=== PATIENT | female | born 1935 | race Caucasian/White ===

== ENCOUNTER 2019-11-26 12:04 | Observation (INO) ==
[2019-11-26 15:14] LABS: ABS Lymphocytes 0.6 10^3/ul (1.0-4.8); ABS Monocytes 0.4 10^3/ul (0-0.8); Hematocrit 34 % (35-47); Lymphocyte % 22.8 %; Mean Corpuscular HGB Conc 35 g/dL (31-36); Mean Corpuscular Hemoglobin 34 pg (27-31); Mean Corpuscular Volume 95 fL (80-97); Mean Platelet Volume 7.4 fL (7.4-10.4); Nucleated Red Blood Cells % 0.1; Platelet Count 190 10^3/uL (150-450); Red Blood Count 3.56 10^6 /uL (3.70-4.87); Red Cell Distribution Width 14 % (10-15); White Blood Count 2.8 10^3/uL (3.5-10.8)
[2019-11-26 15:19] LABS: Urine Appearance Cloudy; Urine Bilirubin Negative (Negative); Urine Blood Negative (Negative); Urine Color Yellow; Urine Glucose Negative (Negative); Urine Ketones Negative (Negative); Urine Nitrite Negative (Negative); Urine Protein Negative (Negative); Urine Specific Gravity 1.019 (1.010-1.030); Urine Urobilinogen Negative (Negative)
[2019-11-26 15:47] LABS: Albumin 3.8 g/dL (3.2-5.2); Albumin/Globulin Ratio 1.2 (1-3); BUN/Creatinine Ratio 28.6 (8-20); Calcium 8.8 mg/dL (8.6-10.3); EGFR African American 55.8 (>60); EGFR Non-African American 46.1 (>60); Globulin 3.2 g/dL (2-4); Potassium 3.3 mmol/L (3.5-5.0); Total Bilirubin 0.6 mg/dL (0.2-1.0)
[2019-11-26] MEDS ORDERED: Iodixanol (CONTRAST) 320 MG/ML 100 ML SDV IV ONE (16:09)
[2019-11-26] MEDS ORDERED: NS 0.9% 1000 ml BAG 1,000 ML IV ONE (17:00)
[2019-11-26] MEDS ORDERED: hydrALAZINE 20 mg/ml 1 ML Vial IV IV SLOW PU PRN (18:27)
[2019-11-26] MEDS: NS 0.9% w/ 40 Meq KCL 1000 ML 1,000 ML IV SCH (22:02)
[2019-11-27 06:49] LABS: INR 1.04 (0.82-1.09)
[2019-11-27 06:55] LABS: ABS Lymphocytes 0.5 10^3/ul (1.0-4.8); ABS Monocytes 0.3 10^3/ul (0-0.8); Hematocrit 29 % (35-47); Hemoglobin 10.3 g/dL (12.0-16.0); Mean Corpuscular HGB Conc 35 g/dL (31-36); Mean Corpuscular Hemoglobin 33 pg (27-31); Mean Corpuscular Volume 94 fL (80-97); Mean Platelet Volume 7.5 fL (7.4-10.4); Platelet Count 163 10^3/uL (150-450); Red Blood Count 3.09 10^6 /uL (3.70-4.87); Red Cell Distribution Width 13 % (10-15); White Blood Count 2.5 10^3/uL (3.5-10.8)
[2019-11-27 07:03] LABS: BUN/Creatinine Ratio 22.9 (8-20); Calcium 8.4 mg/dL (8.6-10.3); EGFR African American 78.9 (>60); EGFR Non-African American 65.2 (>60); Potassium 3.4 mmol/L (3.5-5.0)
[2019-11-27] MEDS: NS 0.9% w/ 40 Meq KCL 1000 ML 1,000 ML IV SCH (09:38)
[2019-11-27 12:36] VITALS: BP 146/57
== END 2019-11-27 16:05 | disposition home or self-care (01) ==
LOC: ED 12:04 → MED 19:13 → INTOOBSV 19:13 → MED 21:48
PROVIDERS: ADMIT Nurse Practitioner; ATTEND Internal Medicine

== ENCOUNTER 2021-08-27 11:44 | Inpatient (IN) ==
[2021-08-27 12:35] LABS: ABS Lymphocytes 0.5 10^3/ul (1.0-4.8); ABS Monocytes 0.3 10^3/ul (0-0.8); ABS Neutrophils 3.8 10^3/ul (1.5-7.7); Eosinophil % 1.1 %; Hematocrit 33 % (35-47); Hemoglobin 10.8 g/dL (12.0-16.0); Lymphocyte % 10.6 %; Mean Corpuscular HGB Conc 33 g/dL (31-36); Mean Corpuscular Hemoglobin 31 pg (27-31); Mean Corpuscular Volume 92 fL (80-97); Mean Platelet Volume 7.2 fL (7.4-10.4); Platelet Count 389 10^3/uL (150-450); Red Blood Count 3.53 10^6 /uL (3.70-4.87); Red Cell Distribution Width 15 % (10-15); White Blood Count 4.6 10^3/uL (3.5-10.8)
[2021-08-27 12:41] LABS: INR 1.19 (0.86-1.15)
[2021-08-27 13:10] LABS: ALT 9 U/L (7-52); AST 11 U/L (13-39); Albumin 3.8 g/dL (3.2-5.2); Alkaline Phosphatase 80 U/L (35-149); Anion Gap 11 mmol/L (2-11); Blood Urea Nitrogen 46 mg/dL (6-24); C Reactive Protein 116.08 mg/L (<8.01); CO2 Carbon Dioxide 25 mmol/L (22-32); Calcium 8.8 mg/dL (8.6-10.3); Chloride 104 mmol/L (101-111); Globulin 3.9 g/dL (2-4); Glucose 108 mg/dL (70-100); Lipase < 10 U/L (11.0-82.0); Potassium 3.5 mmol/L (3.5-5.0); Sodium 140 mmol/L (135-145); Total Protein 7.7 g/dL (6.4-8.9); eGFR CKD-EPI 43.4 (>60)
[2021-08-27 13:48] LABS: Urine Appearance Cloudy; Urine Bilirubin Negative (Negative); Urine Blood Negative (Negative); Urine Color Yellow; Urine Glucose Negative (Negative); Urine Ketones Negative (Negative); Urine Nitrite Negative (Negative); Urine Protein Negative (Negative); Urine Specific Gravity 1.019 (1.002-1.030); Urine Urobilinogen Negative (Negative)
[2021-08-27] MEDS ORDERED: Acetaminophen IV 1 GM/100ML 100 ML IV ONE (15:30)
[2021-08-27] MEDS: Enoxaparin 30 MG/0.3 ML SYR SUBCUT SCH (17:34)
[2021-08-27] MEDS: NS 0.9% 1000 ml BAG 1,000 ML IV SCH (17:34)
[2021-08-27] MEDS: hydrALAZINE 20 mg/ml 1 ML Vial IV IV SLOW PU PRN (18:01)
[2021-08-27] MEDS: Morphine 4 MG/ML VIAL (1 ml) IV PRN ×2 (20:37→23:44)
[2021-08-27] MEDS: Ondansetron 4 mg VIAL 2 MG/ML 2 ml VIAL IV PRN (22:11)
[2021-08-28] MEDS ORDERED: Acetaminophen IV 1 GM/100ML 100 ML IV ONE (00:07)
[2021-08-28] MEDS: Morphine 4 MG/ML VIAL (1 ml) IV PRN ×2 (01:43→07:38)
[2021-08-28] MEDS: Ondansetron 4 mg VIAL 2 MG/ML 2 ml VIAL IV PRN (07:38)
[2021-08-28] MEDS: NS 0.9% 1000 ml BAG 1,000 ML IV SCH (16:21)
[2021-08-28] MEDS: Enoxaparin 30 MG/0.3 ML SYR SUBCUT SCH (16:35)
[2021-08-28] MEDS: hydrALAZINE 20 mg/ml 1 ML Vial IV IV SLOW PU PRN (20:39)
[2021-08-29] MEDS: NS 0.9% 1000 ml BAG 1,000 ML IV SCH (10:44)
[2021-08-29 11:18] LABS: Hematocrit 31 % (35-47); Hemoglobin 10.5 g/dL (12.0-16.0); Mean Corpuscular HGB Conc 34 g/dL (31-36); Mean Corpuscular Hemoglobin 31 pg (27-31); Mean Corpuscular Volume 91 fL (80-97); Mean Platelet Volume 7.4 fL (7.4-10.4); Platelet Count 384 10^3/uL (150-450); Red Cell Distribution Width 15 % (10-15); White Blood Count 4.1 10^3/uL (3.5-10.8)
[2021-08-29 11:55] LABS: Calcium 8.6 mg/dL (8.6-10.3); Potassium 3.6 mmol/L (3.5-5.0); eGFR CKD-EPI 60.3 (>60)
[2021-08-29] MEDS: Enoxaparin 30 MG/0.3 ML SYR SUBCUT SCH (16:22)
[2021-08-30 11:59] VITALS: BP 168/68
== END 2021-08-30 13:40 | disposition home or self-care (01) | DRG 390 ==
LOC: ED 11:44 → EDHOLD 16:49 → MED 21:30
PROVIDERS: ADMIT Hospitalist; ATTEND Hospitalist

== ENCOUNTER 2021-09-05 15:16 | Observation (INO) ==
[2021-09-05] MEDS ORDERED: NS 0.9% 1000 ml BAG 1,000 ML IV ONE (16:58)
[2021-09-05 17:37] LABS: Hematocrit 30 % (35-47); Mean Corpuscular HGB Conc 33 g/dL (31-36); Mean Corpuscular Hemoglobin 31 pg (27-31); Mean Corpuscular Volume 92 fL (80-97); Red Blood Count 3.26 10^6 /uL (3.70-4.87); Red Cell Distribution Width 16 % (10-15); White Blood Count 4.3 10^3/uL (3.5-10.8)
[2021-09-05 17:49] LABS: ABS Lymphocytes 0.6 10^3/ul (1.0-4.8); ABS Monocytes 0.4 10^3/ul (0-0.8); ABS Neutrophils 3.3 10^3/ul (1.5-7.7); Eosinophil % 0.4 %; Lymphocyte % 13.8 %; Mean Platelet Volume 8.4 fL (7.4-10.4); Nucleated Red Blood Cells % 0.5; Platelet Count 312 10^3/uL (150-450)
[2021-09-05 18:09] LABS: ALT 7 U/L (7-52); Albumin 3.5 g/dL (3.2-5.2); Alkaline Phosphatase 76 U/L (35-149); Blood Urea Nitrogen 23 mg/dL (6-24); CO2 Carbon Dioxide 27 mmol/L (22-32); Calcium 8.6 mg/dL (8.6-10.3); Chloride 103 mmol/L (101-111); Globulin 3.5 g/dL (2-4); Glucose 114 mg/dL (70-100); Lipase < 10 U/L (11.0-82.0); Magnesium 1.6 mg/dL (1.9-2.7); Sodium 140 mmol/L (135-145); eGFR CKD-EPI 74.6 (>60)
[2021-09-05 18:16] LABS: Anion Gap 10 mmol/L (2-11)
[2021-09-05 19:53] LABS: Potassium, Whole Blood 3.1 mmol/L (3.4-4.5)
[2021-09-05] MEDS ORDERED: Magnesium Sulfate 2 gm BAG 2 GM/50 ML BAG IVPB ONE (20:32)
[2021-09-05] MEDS ORDERED: Enoxaparin 30 MG/0.3 ML SYR SUBCUT SCH (21:00)
[2021-09-05] MEDS ORDERED: DIPHENHYDRAMINE 2% TOPICAL PRN (21:22)
[2021-09-05] MEDS: KCL 20 MEQ/100 ML IVPREMIX 20 MEQ/100 ML BAG IV SCH (21:33)
[2021-09-06] MEDS: KCL 20 MEQ/100 ML IVPREMIX 20 MEQ/100 ML BAG IV SCH (02:39)
[2021-09-06] MEDS: Morphine 2 MG/ML SYRINGE IV PRN ×3 (03:43→15:50)
[2021-09-06] MEDS: hydrALAZINE 20 mg/ml 1 ML Vial IV IV SLOW PU PRN ×2 (04:19→16:52)
[2021-09-06] MEDS ORDERED: Acetaminophen IV 1 GM/100ML 100 ML IV PRN (05:01)
[2021-09-06 06:00] LABS: ABS Lymphocytes 0.6 10^3/ul (1.0-4.8); ABS Monocytes 0.4 10^3/ul (0-0.8); ABS Neutrophils 3.5 10^3/ul (1.5-7.7); Eosinophil % 0.4 %; Hematocrit 29 % (35-47); Hemoglobin 9.5 g/dL (12.0-16.0); Mean Corpuscular HGB Conc 33 g/dL (31-36); Mean Corpuscular Hemoglobin 30 pg (27-31); Mean Corpuscular Volume 91 fL (80-97); Mean Platelet Volume 7.5 fL (7.4-10.4); Nucleated Red Blood Cells % 0.1; Platelet Count 360 10^3/uL (150-450); Red Blood Count 3.15 10^6 /uL (3.70-4.87); Red Cell Distribution Width 16 % (10-15); White Blood Count 4.5 10^3/uL (3.5-10.8)
[2021-09-06 06:05] LABS: INR 1.08 (0.86-1.15)
[2021-09-06] MEDS: Enoxaparin 30 MG/0.3 ML SYR SUBCUT SCH (06:07)
[2021-09-06 06:17] LABS: Albumin 3.2 g/dL (3.2-5.2); Calcium 8.2 mg/dL (8.6-10.3); Globulin 3.1 g/dL (2-4); Potassium 3.4 mmol/L (3.5-5.0); Total Bilirubin 0.4 mg/dL (0.2-1.0); Total Protein 6.3 g/dL (6.4-8.9); eGFR CKD-EPI 86.1 (>60)
[2021-09-06] MEDS ORDERED: KCL 20 MEQ/100 ML IVPREMIX 20 MEQ/100 ML BAG IV ONE (06:18)
[2021-09-06] MEDS: Ondansetron 4 mg VIAL 2 MG/ML 2 ml VIAL IV PRN ×2 (06:40→23:31)
[2021-09-06] MEDS ORDERED: Diatrizoate Meg/Sod(CONTRAST) 30 ML ORAL.SOLN PO ONE (15:34)
[2021-09-06] MEDS: Lactated Ringers 1000 ml BAG 1,000 ML IV SCH (15:44)
[2021-09-06] MEDS: Acetaminophen IV 1 GM/100ML 100 ML IV SCH (18:02)
[2021-09-07] MEDS: Acetaminophen IV 1 GM/100ML 100 ML IV SCH ×4 (01:13→18:11)
[2021-09-07] MEDS: Lactated Ringers 1000 ml BAG 1,000 ML IV SCH ×2 (05:58→18:13)
[2021-09-07] MEDS: Enoxaparin 30 MG/0.3 ML SYR SUBCUT SCH (05:59)
[2021-09-07 06:15] LABS: ABS Lymphocytes 0.5 10^3/ul (1.0-4.8); ABS Monocytes 0.4 10^3/ul (0-0.8); ABS Neutrophils 3.2 10^3/ul (1.5-7.7); Eosinophil % 0.3 %; Hematocrit 28 % (35-47); Hemoglobin 9.6 g/dL (12.0-16.0); Lymphocyte % 12.2 %; Mean Corpuscular HGB Conc 34 g/dL (31-36); Mean Corpuscular Hemoglobin 31 pg (27-31); Mean Corpuscular Volume 92 fL (80-97); Mean Platelet Volume 7.3 fL (7.4-10.4); Nucleated Red Blood Cells % 0.1; Platelet Count 340 10^3/uL (150-450); Red Blood Count 3.09 10^6 /uL (3.70-4.87); Red Cell Distribution Width 16 % (10-15); White Blood Count 4.1 10^3/uL (3.5-10.8)
[2021-09-07 06:41] LABS: Calcium 8.3 mg/dL (8.6-10.3); Magnesium 1.9 mg/dL (1.9-2.7); Potassium 3.5 mmol/L (3.5-5.0); eGFR CKD-EPI 85.2 (>60)
[2021-09-08 00:10] LABS: Urine Appearance Clear; Urine Bilirubin Negative (Negative); Urine Blood Negative (Negative); Urine Color Yellow; Urine Glucose Negative (Negative); Urine Ketones Negative (Negative); Urine Nitrite Negative (Negative); Urine Protein Negative (Negative); Urine Specific Gravity 1.017 (1.002-1.030); Urine Urobilinogen Negative (Negative)
[2021-09-08] MEDS: Acetaminophen IV 1 GM/100ML 100 ML IV SCH ×2 (00:41→06:05)
[2021-09-08] MEDS: Morphine 2 MG/ML SYRINGE IV PRN (01:22)
[2021-09-08 05:59] LABS: ABS Lymphocytes 0.7 10^3/ul (1.0-4.8); ABS Monocytes 0.4 10^3/ul (0-0.8); ABS Neutrophils 2.7 10^3/ul (1.5-7.7); Eosinophil % 0.9 %; Hematocrit 27 % (35-47); Lymphocyte % 17.8 %; Mean Corpuscular HGB Conc 33 g/dL (31-36); Mean Corpuscular Hemoglobin 30 pg (27-31); Mean Corpuscular Volume 91 fL (80-97); Mean Platelet Volume 7.4 fL (7.4-10.4); Platelet Count 307 10^3/uL (150-450); Red Blood Count 2.95 10^6 /uL (3.70-4.87); Red Cell Distribution Width 17 % (10-15); White Blood Count 3.9 10^3/uL (3.5-10.8)
[2021-09-08] MEDS: Enoxaparin 30 MG/0.3 ML SYR SUBCUT SCH (06:06)
[2021-09-08 06:21] LABS: Calcium 8.2 mg/dL (8.6-10.3); Potassium 2.9 mmol/L (3.5-5.0)
[2021-09-08 06:27] LABS: eGFR CKD-EPI 83.9 (>60)
[2021-09-08] MEDS: KCL 20 MEQ/100 ML IVPREMIX 20 MEQ/100 ML BAG IV SCH ×3 (09:22→14:42)
[2021-09-08] MEDS ORDERED: Potassium Chlor 10 meq TAB PO ONE (14:12)
[2021-09-09] MEDS: Enoxaparin 30 MG/0.3 ML SYR SUBCUT SCH (06:17)
[2021-09-09 08:35] LABS: ABS Lymphocytes 0.6 10^3/ul (1.0-4.8); ABS Monocytes 0.4 10^3/ul (0-0.8); ABS Neutrophils 3.5 10^3/ul (1.5-7.7); Eosinophil % 0.9 %; Hematocrit 28 % (35-47); Hemoglobin 9.5 g/dL (12.0-16.0); Lymphocyte % 13.3 %; Mean Corpuscular HGB Conc 33 g/dL (31-36); Mean Corpuscular Hemoglobin 31 pg (27-31); Mean Corpuscular Volume 92 fL (80-97); Mean Platelet Volume 7.1 fL (7.4-10.4); Platelet Count 329 10^3/uL (150-450); Red Cell Distribution Width 16 % (10-15); White Blood Count 4.6 10^3/uL (3.5-10.8)
[2021-09-09 09:16] LABS: Calcium 8.3 mg/dL (8.6-10.3); eGFR CKD-EPI 83.9 (>60)
[2021-09-09] MEDS ORDERED: Potassium Chlor 20 meq TAB.ER PO ONE ×3 (09:54→18:00)
[2021-09-10] MEDS: Enoxaparin 30 MG/0.3 ML SYR SUBCUT SCH (05:25)
[2021-09-10 05:33] LABS: Hematocrit 28 % (35-47); Hemoglobin 9.3 g/dL (12.0-16.0); Mean Corpuscular HGB Conc 33 g/dL (31-36); Mean Corpuscular Hemoglobin 31 pg (27-31); Mean Corpuscular Volume 93 fL (80-97); Mean Platelet Volume 7.5 fL (7.4-10.4); Platelet Count 318 10^3/uL (150-450); Red Blood Count 3.02 10^6 /uL (3.70-4.87); Red Cell Distribution Width 17 % (10-15); White Blood Count 4.2 10^3/uL (3.5-10.8)
[2021-09-10 05:49] LABS: Calcium 8.3 mg/dL (8.6-10.3); Magnesium 1.6 mg/dL (1.9-2.7); Potassium 3.6 mmol/L (3.5-5.0); eGFR CKD-EPI 80.9 (>60)
[2021-09-10] MEDS ORDERED: Magnesium Sulfate 2 gm BAG 2 GM/50 ML BAG IVPB ONE (06:55)
[2021-09-10 11:36] VITALS: BP 186/72
== END 2021-09-10 12:20 | disposition home or self-care (01) ==
LOC: ED 15:16 → EDHOLD 15:16 → SUATTDRO 20:17 → SSU 09-06 00:20
PROVIDERS: ADMIT Internal Medicine; ATTEND Internal Medicine

== ENCOUNTER 2021-09-13 14:27 | Observation (INO) ==
[2021-09-13 16:12] LABS: ABS Lymphocytes 0.4 10^3/ul (1.0-4.8); ABS Monocytes 0.4 10^3/ul (0-0.8); Eosinophil % 0.3 %; Hematocrit 30 % (35-47); Hemoglobin 10.2 g/dL (12.0-16.0); Lymphocyte % 8.9 %; Mean Corpuscular HGB Conc 34 g/dL (31-36); Mean Corpuscular Hemoglobin 31 pg (27-31); Mean Corpuscular Volume 92 fL (80-97); Mean Platelet Volume 7.1 fL (7.4-10.4); Platelet Count 300 10^3/uL (150-450); Red Blood Count 3.29 10^6 /uL (3.70-4.87); Red Cell Distribution Width 18 % (10-15); White Blood Count 4.9 10^3/uL (3.5-10.8)
[2021-09-13] MEDS ORDERED: Ondansetron 4 mg VIAL 2 MG/ML 2 ml VIAL IV PRN (16:40)
[2021-09-13] MEDS ORDERED: Lactated Ringers 1000 ml BAG 1,000 ML IV ONE (16:42)
[2021-09-13 16:54] LABS: Albumin 3.5 g/dL (3.2-5.2); Calcium 8.7 mg/dL (8.6-10.3); Globulin 3.6 g/dL (2-4); Potassium 3.2 mmol/L (3.5-5.0); Total Bilirubin 0.5 mg/dL (0.2-1.0); Total Protein 7.1 g/dL (6.4-8.9); eGFR CKD-EPI 82.2 (>60)
[2021-09-13] MEDS: Acetaminophen IV 1 GM/100ML 100 ML IV PRN (17:31)
[2021-09-13] MEDS ORDERED: Enoxaparin 40 MG/0.4 ML SYR SUBCUT SCH (18:00)
[2021-09-13] MEDS: Lactated Ringers 1000 ml BAG 1,000 ML IV SCH (22:39)
[2021-09-13] MEDS: KCL 20 MEQ/100 ML IVPREMIX 20 MEQ/100 ML BAG IV SCH (22:39)
[2021-09-14] MEDS: Acetaminophen IV 1 GM/100ML 100 ML IV PRN ×2 (00:26→21:55)
[2021-09-14] MEDS ORDERED: Morphine 2 MG/ML SYRINGE IV ONE (02:53)
[2021-09-14] MEDS ORDERED: KCL 20 MEQ/100 ML IVPREMIX 20 MEQ/100 ML BAG IV SCH (04:00)
[2021-09-14] MEDS: KCL 20 MEQ/100 ML IVPREMIX 20 MEQ/100 ML BAG IV SCH (04:49)
[2021-09-14 05:59] LABS: ABS Lymphocytes 0.5 10^3/ul (1.0-4.8); ABS Monocytes 0.4 10^3/ul (0-0.8); ABS Neutrophils 2.7 10^3/ul (1.5-7.7); Hematocrit 25 % (35-47); Hemoglobin 8.2 g/dL (12.0-16.0); Lymphocyte % 13.8 %; Mean Corpuscular HGB Conc 33 g/dL (31-36); Mean Corpuscular Hemoglobin 31 pg (27-31); Mean Corpuscular Volume 93 fL (80-97); Mean Platelet Volume 7.4 fL (7.4-10.4); Nucleated Red Blood Cells % 0.1; Platelet Count 257 10^3/uL (150-450); Red Cell Distribution Width 17 % (10-15); White Blood Count 3.5 10^3/uL (3.5-10.8)
[2021-09-14 06:27] LABS: Calcium 7.8 mg/dL (8.6-10.3); Magnesium 1.6 mg/dL (1.9-2.7); Potassium 3.3 mmol/L (3.5-5.0); eGFR CKD-EPI 83.9 (>60)
[2021-09-14] MEDS ORDERED: Magnesium Sulfate 2 gm BAG 2 GM/50 ML BAG IVPB ONE (08:22)
[2021-09-14] MEDS ORDERED: Enalaprilat IV 1.25 mg/ml 1 ml VIAL (1.25 MG) IV ONE (08:23)
[2021-09-14] MEDS: KCL 10 MEQ/50 ML IVPREMIX 10 MEQ/50 ML BAG IV SCH ×2 (09:47→11:16)
[2021-09-14] MEDS: Lactated Ringers 1000 ml BAG 1,000 ML IV SCH ×2 (09:52→21:57)
[2021-09-15 06:16] LABS: Calcium 7.7 mg/dL (8.6-10.3); Magnesium 1.8 mg/dL (1.9-2.7); eGFR CKD-EPI 87.2 (>60)
[2021-09-15] MEDS ORDERED: Magnesium Sulfate 2 gm BAG 2 GM/50 ML BAG IVPB ONE (08:15)
[2021-09-15] MEDS ORDERED: Potassium Chlor 20 meq TAB.ER PO ONE ×2 (08:16→12:00)
[2021-09-15] MEDS ORDERED: KCL 20 MEQ/100 ML IVPREMIX 20 MEQ/100 ML BAG IV ONE (08:17)
[2021-09-15] MEDS: Lactated Ringers 1000 ml BAG 1,000 ML IV SCH (09:39)
[2021-09-15] MEDS ORDERED: Gadoteridol (CONTRAST) 279.3 MG/ML 10 ML IV ONE (15:29)
[2021-09-15] MEDS: Acetaminophen IV 1 GM/100ML 100 ML IV PRN (16:08)
[2021-09-15] MEDS ORDERED: Enalaprilat IV 1.25 mg/ml 1 ml VIAL (1.25 MG) IV ONE (16:30)
[2021-09-15] MEDS: Enoxaparin 40 MG/0.4 ML SYR SUBCUT SCH (16:54)
[2021-09-15 17:28] LABS: Calcium 7.9 mg/dL (8.6-10.3); Magnesium 2.3 mg/dL (1.9-2.7); Potassium 3.8 mmol/L (3.5-5.0); eGFR CKD-EPI 86.8 (>60)
[2021-09-15] MEDS ORDERED: CALCIUM GLUCONATE 1GM/50ML NS 1 GM/50 ML BAG IV ONE (20:17)
[2021-09-16] MEDS: Acetaminophen IV 1 GM/100ML 100 ML IV PRN (01:40)
[2021-09-16] MEDS: Lactated Ringers 1000 ml BAG 1,000 ML IV SCH (04:25)
[2021-09-16 05:12] LABS: ABS Lymphocytes 0.5 10^3/ul (1.0-4.8); ABS Monocytes 0.4 10^3/ul (0-0.8); ABS Neutrophils 1.6 10^3/ul (1.5-7.7); Eosinophil % 1.5 %; Hematocrit 24 % (35-47); Hemoglobin 8.1 g/dL (12.0-16.0); Lymphocyte % 19.8 %; Mean Corpuscular HGB Conc 34 g/dL (31-36); Mean Corpuscular Hemoglobin 31 pg (27-31); Mean Corpuscular Volume 92 fL (80-97); Mean Platelet Volume 7.2 fL (7.4-10.4); Platelet Count 238 10^3/uL (150-450); Red Blood Count 2.62 10^6 /uL (3.70-4.87); Red Cell Distribution Width 17 % (10-15); White Blood Count 2.5 10^3/uL (3.5-10.8)
[2021-09-16 05:30] LABS: Calcium 7.8 mg/dL (8.6-10.3); Potassium 3.4 mmol/L (3.5-5.0); eGFR CKD-EPI 84.8 (>60)
[2021-09-16] MEDS: D5W 1/2 NS KCl 20 meq 1000 ml 1,000 ML IV SCH (06:24)
[2021-09-16] MEDS ORDERED: Potassium Chlor 20 meq TAB.ER PO ONE ×2 (08:50→12:00)
[2021-09-16] MEDS: Calcium/Vitamin D TAB 250/125 TAB PO SCH ×2 (09:34→20:28)
[2021-09-16] MEDS ORDERED: Vancomycin 1,000 MG in NS 0.9% 250 ml 250 ML IVPB ONE ×2 (11:10→12:30)
[2021-09-16] MEDS: Cefepime 2 GM in Dextrose 2 GM/50 ML BAG IV SCH (11:57)
[2021-09-16] MEDS ORDERED: Vancomycin per Pharmacy 1 EA NOTE FOLLOW UP SCH (12:00)
[2021-09-16 15:03] LABS: Calcium 7.8 mg/dL (8.6-10.3); Magnesium 1.9 mg/dL (1.9-2.7); Potassium 3.5 mmol/L (3.5-5.0); eGFR CKD-EPI 85.5 (>60)
[2021-09-16] MEDS: Enoxaparin 40 MG/0.4 ML SYR SUBCUT SCH (17:25)
[2021-09-16 19:19] LABS: Vitamin D Total 25(OH) 10.3 ng/mL (20-50)
[2021-09-16] MEDS ORDERED: CALCIUM GLUCONATE 1GM/50ML NS 1 GM/50 ML BAG IV ONE (20:00)
[2021-09-17] MEDS: Cefepime 2 GM in Dextrose 2 GM/50 ML BAG IV SCH ×2 (00:16→14:35)
[2021-09-17] MEDS ORDERED: Vancomycin 750 MG in NS 0.9% 250 ML IVPB SCH (01:30)
[2021-09-17] MEDS: D5W 1/2 NS KCl 20 meq 1000 ml 1,000 ML IV SCH (04:18)
[2021-09-17 04:46] LABS: ABS Lymphocytes 0.6 10^3/ul (1.0-4.8); ABS Monocytes 0.4 10^3/ul (0-0.8); ABS Neutrophils 2.3 10^3/ul (1.5-7.7); Eosinophil % 1.1 %; Hematocrit 27 % (35-47); Hemoglobin 8.8 g/dL (12.0-16.0); Lymphocyte % 17.5 %; Mean Corpuscular HGB Conc 33 g/dL (31-36); Mean Corpuscular Hemoglobin 31 pg (27-31); Mean Corpuscular Volume 92 fL (80-97); Mean Platelet Volume 7.3 fL (7.4-10.4); Nucleated Red Blood Cells % 0.1; Platelet Count 279 10^3/uL (150-450); Red Blood Count 2.89 10^6 /uL (3.70-4.87); Red Cell Distribution Width 18 % (10-15); White Blood Count 3.4 10^3/uL (3.5-10.8)
[2021-09-17 05:21] LABS: Calcium 7.8 mg/dL (8.6-10.3); Magnesium 1.8 mg/dL (1.9-2.7); Potassium 3.5 mmol/L (3.5-5.0); eGFR CKD-EPI 68.2 (>60)
[2021-09-17] MEDS: Acetaminophen IV 1 GM/100ML 100 ML IV PRN (07:49)
[2021-09-17] MEDS ORDERED: CALCIUM GLUCONATE 1GM/50ML NS 1 GM/50 ML BAG IV ONE (08:00)
[2021-09-17] MEDS: Calcium/Vitamin D TAB 250/125 TAB PO SCH ×2 (08:01→22:51)
[2021-09-17] MEDS ORDERED: Potassium Chlor 20 meq TAB.ER PO SCH (09:00)
[2021-09-17] MEDS: Potassium Chlor 20 meq TAB.ER PO SCH ×2 (09:49→22:51)
[2021-09-17 12:22] LABS: C Reactive Protein 13.61 mg/L (<8.01)
[2021-09-17] MEDS: Cholestyramine Resin 4 GM POWDER PO SCH (15:06)
[2021-09-17] MEDS: Enoxaparin 40 MG/0.4 ML SYR SUBCUT SCH (17:26)
[2021-09-18] MEDS: Acetaminophen IV 1 GM/100ML 100 ML IV PRN (04:21)
[2021-09-18 05:42] LABS: ABS Lymphocytes 0.6 10^3/ul (1.0-4.8); ABS Monocytes 0.5 10^3/ul (0-0.8); ABS Neutrophils 2.3 10^3/ul (1.5-7.7); Eosinophil % 0.7 %; Hematocrit 26 % (35-47); Hemoglobin 8.6 g/dL (12.0-16.0); Lymphocyte % 18.4 %; Mean Corpuscular HGB Conc 34 g/dL (31-36); Mean Corpuscular Hemoglobin 31 pg (27-31); Mean Corpuscular Volume 92 fL (80-97); Mean Platelet Volume 7.4 fL (7.4-10.4); Nucleated Red Blood Cells % 0.1; Platelet Count 269 10^3/uL (150-450); Red Blood Count 2.79 10^6 /uL (3.70-4.87); Red Cell Distribution Width 18 % (10-15); White Blood Count 3.4 10^3/uL (3.5-10.8)
[2021-09-18 06:01] LABS: Calcium 7.9 mg/dL (8.6-10.3); Magnesium 1.7 mg/dL (1.9-2.7); Potassium 3.8 mmol/L (3.5-5.0); eGFR CKD-EPI 71.3 (>60)
[2021-09-18] MEDS ORDERED: Magnesium Sulfate IV 1GM/100ML 1 GM/100 ML BAG IV ONE (08:00)
[2021-09-18] MEDS: Calcium/Vitamin D TAB 250/125 TAB PO SCH (09:30)
[2021-09-18] MEDS: Potassium Chlor 20 meq TAB.ER PO SCH (09:30)
[2021-09-18] MEDS: Cholestyramine Resin 4 GM POWDER PO SCH (09:30)
[2021-09-18 11:24] VITALS: BP 142/74
[2021-09-18] MEDS ORDERED: Vancomycin Trough Check NOTE FOLLOW UP ONE (13:00)
[2021-09-18 15:36] LABS: Calprotectin <50.0 mcg/g
[2021-09-20 17:38] LABS: Pancreatic Elastase Feces >500 mcg/g
== END 2021-09-18 13:30 | disposition home or self-care (01) ==
LOC: ED 14:27 → EDHOLD 14:27 → SUATTDRO 16:40 → SSU 21:25
PROVIDERS: ADMIT Internal Medicine; ATTEND Hospitalist

== ENCOUNTER 2022-02-23 10:47 | Inpatient (IN) ==
[2022-02-23] MEDS ORDERED: NS 0.9% 1000 ml BAG 1,000 ML IV ONE ×2 (11:07→12:15)
[2022-02-23] MEDS ORDERED: Ondansetron 4 mg VIAL 2 MG/ML 2 ml VIAL IV ONE (11:19)
[2022-02-23 11:35] LABS: ABS Lymphocytes 0.4 10^3/ul (1.0-4.8); ABS Monocytes 0.8 10^3/ul (0-0.8); ABS Neutrophils 8.3 10^3/ul (1.5-7.7); Hematocrit 34 % (35-47); Hemoglobin 10.9 g/dL (12.0-16.0); Lymphocyte % 3.9 %; Mean Corpuscular HGB Conc 32 g/dL (31-36); Mean Corpuscular Hemoglobin 28 pg (27-31); Mean Corpuscular Volume 87 fL (80-97); Mean Platelet Volume 7.4 fL (7.4-10.4); Platelet Count 317 10^3/uL (150-450); Red Cell Distribution Width 17 % (10-15); White Blood Count 9.5 10^3/uL (3.5-10.8)
[2022-02-23 11:56] LABS: High Sens Troponin Baseline 26 pg/mL (<15)
[2022-02-23 12:28] LABS: ALT 11 U/L (7-52); AST 12 U/L (13-39); Albumin 3.5 g/dL (3.2-5.2); Alkaline Phosphatase 87 U/L (35-149); Anion Gap 16 mmol/L (2-11); Blood Urea Nitrogen 88 mg/dL (6-24); CO2 Carbon Dioxide 18 mmol/L (22-32); Calcium 8.3 mg/dL (8.6-10.3); Chloride 107 mmol/L (101-111); Globulin 3.6 g/dL (2-4); Glucose 145 mg/dL (70-100); Lipase < 10 U/L (11.0-82.0); Magnesium 2.1 mg/dL (1.9-2.7); Potassium 3.4 mmol/L (3.5-5.0); Sodium 141 mmol/L (135-145); Total Protein 7.1 g/dL (6.4-8.9); eGFR CKD-EPI 12.3 (>60)
[2022-02-23 12:35] LABS: TSH Ultra Thyroid Stim Horm 2.51 mcIU/mL (0.34-5.60)
[2022-02-23 13:10] LABS: High Sensitivity Troponin 1 Hr 27 pg/mL (<15); Urine Appearance Cloudy; Urine Bilirubin 1+ (Small) (Negative); Urine Blood Negative (Negative); Urine Color Yellow; Urine Glucose Negative (Negative); Urine Ketones Trace (Negative); Urine Specific Gravity 1.015 (1.005-1.030)
[2022-02-23 13:11] LABS: Urine Nitrite Negative (Negative); Urine Protein Negative (Negative); Urine Urobilinogen 0.2 (Negative) (Negative); Urine pH 5.5 (5.0-9.0)
[2022-02-23 13:29] LABS: Urine Bacteria 3+ (Absent); Urine Red Blood Cell 2+(6-10/hpf) (Absent); Urine White Blood Cell 3+(>20/hpf) (Absent)
[2022-02-23] MEDS ORDERED: cefTRIAXone 1 gm/50 mL D5W 1 GM/50 ML BAG IV ONE (13:49)
[2022-02-23] MEDS ORDERED: Ondansetron 4 mg VIAL 2 MG/ML 2 ml VIAL IV PRN (14:07)
[2022-02-23] MEDS ORDERED: Enoxaparin 40 MG/0.4 ML SYR SUBCUT SCH (15:00)
[2022-02-23] MEDS: KCL 20 MEQ/100 ML IVPREMIX 20 MEQ/100 ML BAG IV SCH ×2 (15:44→20:11)
[2022-02-23] MEDS ORDERED: Lactated Ringers 1000 ml BAG 1,000 ML IV SCH ×3 (17:00→17:28)
[2022-02-23] MEDS ORDERED: Digoxin IV 0.5 MG/2 ML AMP (0.25 MG/ML) IV SLOW PU ONE (17:25)
[2022-02-23 18:52] LABS: C Reactive Protein 18.77 mg/L (<8.01)
[2022-02-23] MEDS: Heparin 5000 UNITS/ML 1 mL VIAL IV SCH (20:18)
[2022-02-23] MEDS: Heparin DRIP 25,000 UNITS BAG 25,000 UNITS/500 ML BAG IV SCH (20:28)
[2022-02-23] MEDS ORDERED: Heparin 5000 UNITS/ML 1 mL VIAL SUBCUT SCH (21:00)
[2022-02-24] MEDS: Zinc Oxide 16% PASTE (Butt Paste) 30 gm TUBE TOPICAL SCH ×3 (00:44→22:16)
[2022-02-24 05:31] LABS: ABS Eosinophils 0.1 10^3/ul (0-0.6); ABS Lymphocytes 0.7 10^3/ul (1.0-4.8); ABS Monocytes 0.5 10^3/ul (0-0.8); ABS Neutrophils 4.5 10^3/ul (1.5-7.7); Eosinophil % 1.4 %; Hematocrit 32 % (35-47); Hemoglobin 10.6 g/dL (12.0-16.0); Lymphocyte % 12.2 %; Mean Corpuscular HGB Conc 33 g/dL (31-36); Mean Corpuscular Hemoglobin 29 pg (27-31); Mean Corpuscular Volume 87 fL (80-97); Mean Platelet Volume 7.5 fL (7.4-10.4); Platelet Count 254 10^3/uL (150-450); Red Blood Count 3.68 10^6 /uL (3.70-4.87); Red Cell Distribution Width 17 % (10-15); White Blood Count 5.8 10^3/uL (3.5-10.8)
[2022-02-24 06:14] LABS: Blood Urea Nitrogen 47 mg/dL (6-24); Glucose 81 mg/dL (70-100); eGFR CKD-EPI 40.3 (>60)
[2022-02-24 06:23] LABS: Anion Gap 10 mmol/L (2-11); CO2 Carbon Dioxide 14 mmol/L (22-32); Calcium 5.1 mg/dL (8.6-10.3); Chloride 122 mmol/L (101-111); Sodium 146 mmol/L (135-145)
[2022-02-24 07:41] LABS: Magnesium 1.3 mg/dL (1.9-2.7); Potassium Redraw 3.2 mmol/L (3.5-5.0)
[2022-02-24 08:25] LABS: Calcium 8.4 mg/dL (8.6-10.3); Potassium 3.6 mmol/L (3.5-5.0)
[2022-02-24] MEDS: Acetaminophen IV 1 GM/100ML 1,000 MG/100 ML BAG IV PRN (08:35)
[2022-02-24] MEDS ORDERED: Lactated Ringers 1000 ml BAG 1,000 ML IV SCH (10:00)
[2022-02-24] MEDS: Heparin 5000 UNITS/ML 1 mL VIAL IV SCH (15:23)
[2022-02-24] MEDS: cefTRIAXone 1 gm/50 mL D5W 1 GM/50 ML BAG IV SCH (16:34)
[2022-02-25] MEDS: Heparin DRIP 25,000 UNITS BAG 25,000 UNITS/500 ML BAG IV SCH (04:46)
[2022-02-25 06:12] LABS: ABS Eosinophils 0.2 10^3/ul (0-0.6); ABS Lymphocytes 0.8 10^3/ul (1.0-4.8); ABS Monocytes 0.4 10^3/ul (0-0.8); ABS Neutrophils 3.6 10^3/ul (1.5-7.7); Eosinophil % 3.1 %; Hematocrit 30 % (35-47); Lymphocyte % 15.7 %; Mean Corpuscular HGB Conc 33 g/dL (31-36); Mean Corpuscular Hemoglobin 29 pg (27-31); Mean Corpuscular Volume 87 fL (80-97); Mean Platelet Volume 7.4 fL (7.4-10.4); Nucleated Red Blood Cells % 0.1; Platelet Count 241 10^3/uL (150-450); Red Blood Count 3.46 10^6 /uL (3.70-4.87); Red Cell Distribution Width 17 % (10-15)
[2022-02-25 06:53] LABS: Calcium 8.2 mg/dL (8.6-10.3); Magnesium 1.8 mg/dL (1.9-2.7); Phosphorus 2.8 mg/dL (2.5-5.0); Potassium 3.4 mmol/L (3.5-5.0); eGFR CKD-EPI 38.8 (>60)
[2022-02-25] MEDS ORDERED: Potassium Chloride LIQUID 20 MEQ/15 ML LIQUID PO ONE (07:33)
[2022-02-25] MEDS ORDERED: Magnesium Sulfate 2 gm BAG 2 GM/50 ML BAG IVPB ONE (07:36)
[2022-02-25] MEDS: Zinc Oxide 16% PASTE (Butt Paste) 30 gm TUBE TOPICAL SCH ×2 (11:11→20:00)
[2022-02-25] MEDS ORDERED: Buprenorphine 5 MCG PATCH(NF) 5 MCG/HR PATCH (5 MG TOTAL) TRANSDERM SCH (14:00)
[2022-02-25] MEDS: cefTRIAXone 1 gm/50 mL D5W 1 GM/50 ML BAG IV SCH ×2 (15:44→16:12)
[2022-02-25] MEDS: Collagenase 250 units/gm OINT 1 tube TOPICAL SCH (19:17)
[2022-02-25] MEDS: Buprenorph Patch Check Q Shift 1 NOTE MISC FOLLOW UP SCH (19:21)
[2022-02-26] MEDS: Acetaminophen IV 1 GM/100ML 1,000 MG/100 ML BAG IV PRN (08:09)
[2022-02-26] MEDS: Buprenorph Patch Check Q Shift 1 NOTE MISC FOLLOW UP SCH ×2 (08:12→19:51)
[2022-02-26] MEDS: Zinc Oxide 16% PASTE (Butt Paste) 30 gm TUBE TOPICAL SCH ×2 (08:12→20:12)
[2022-02-26] MEDS: cefTRIAXone 1 gm/50 mL D5W 1 GM/50 ML BAG IV SCH (17:28)
[2022-02-27] MEDS: Buprenorph Patch Check Q Shift 1 NOTE MISC FOLLOW UP SCH ×2 (06:58→19:11)
[2022-02-27] MEDS: Collagenase 250 units/gm OINT 1 tube TOPICAL SCH (14:25)
[2022-02-27] MEDS: Zinc Oxide 16% PASTE (Butt Paste) 30 gm TUBE TOPICAL SCH ×2 (14:25→23:04)
[2022-02-27] MEDS: cefTRIAXone 1 gm/50 mL D5W 1 GM/50 ML BAG IV SCH (17:08)
[2022-02-28] MEDS: Buprenorph Patch Check Q Shift 1 NOTE MISC FOLLOW UP SCH (06:57)
[2022-02-28] MEDS: Zinc Oxide 16% PASTE (Butt Paste) 30 gm TUBE TOPICAL SCH (13:39)
[2022-02-28 15:51] VITALS: BP 159/72
== END 2022-02-28 16:15 | disposition hospice, home (50) | DRG 388 ==
LOC: ED 10:47 → EDHOLD 10:47 → ICU 02-24 06:23 → SUATTDRO 02-24 14:42 → MED 02-26 14:02
PROVIDERS: ADMIT Internal Medicine; ATTEND Internal Medicine Critical Care Medicine